=== PATIENT | female | born 1990 | race Caucasian/White ===

== ENCOUNTER → 2017-09-19 | Outpatient (CLI) | payer OTHER | END | disposition home or self-care (01) | LOC: RAD 13:07 | DX: M54.6 Pain in thoracic spine (principal); M25.532 Pain in left wrist | CPT/HCPCS: 72072; 73100 ==

== ENCOUNTER 2021-09-12 07:56 | Day surgery (SDC) | payer OTHER, MEDICAID ==
[~2021-09-12] VITALS: Ht 166.4 cm; Wt 61.0 kg
[~2021-09-12 07:56] MED LIST: FEXO-213 PO; HYDROmorphone 2 MG/ML INJ. IVP PRN; IV RINGERS,LACTATED 1000ML 1,000 ML IV SCH; MORPHINE SULFATE 2 MG/ML INJ. IVP PRN; NORG1TAB8 PO; PROCHLORPERAZINE 10 MG/2 ML VIAL. IVP PRN; fentaNYL PF VIAL 100 MCG/2 ML VIAL IVP PRN
[2021-09-12 08:24] VITALS: BP 156/95
[2021-09-12] MEDS ORDERED: ONDANSETRON PF 4 MG/2 ML VIAL. ONE (09:01)
[2021-09-12] MEDS ORDERED: PROPOFOL 10 MG/ML (20ML) VIAL. IV ONE ×3 (09:01→15:05)
[2021-09-12] MEDS ORDERED: LIDOCAINE 2% PF 5 ML VIAL. ONE (09:01)
[2021-09-12] MEDS ORDERED: SEVOFLURANE 61 TO 120 MINUTES. IH ONE (09:02)
[2021-09-12] MEDS ORDERED: DEXAMETHASONE SOD PHOS 4 MG/ML VIAL ONE (09:02)
[2021-09-12] MEDS ORDERED: fentaNYL PF VIAL 100 MCG/2 ML VIAL ONE ×2 (09:03→15:30)
[2021-09-12] MEDS ORDERED: HYDROmorphone 2 MG/ML INJ. ONE (09:13)
[2021-09-12] MEDS ORDERED: BUPIVACAINE MPF 0.25% 30 ML VIAL. ONE (12:34)
[2021-09-12] MEDS ORDERED: MIDAZOLAM HCL/PF 2 MG/2 ML VIAL. ONE (12:38)
[2021-09-12] MEDS ORDERED: diphenhydrAMINE 50 MG/ML VIAL ONE (13:52)
--- NOTE | 2021-09-12 15:19 | PDOC4 ---
OPERATIVE NOTE Date: Date: Sep 12, 2021 Pre-Op Diagnosis: Left bunion Post-Op Diagnosis: Left bunion deformity Procedure Performed: Distal first metatarsal osteotomy and Allen osteotomy, left Surgeon: Robby Fierro DPM Anesthesia Type: General Blood Loss: 20 cc Specimans Obtained: None Findings: Increased first intermetatarsal angle. Preoperatively, it measured 12 degrees but clinically, it was more significant. I think patient was guarding and inverting at the time of weightbearing x-ray. There was mild abutting between the hallux and second digit. Complications: None Operative Note: nder mild sedation, patient was brought into the operating room and placed on the operative table in a supine position. A formal timeout was performed to confirm patient's identity, procedure and procedure site. Following IV antibiotics and general anesthesia, a well-padded left high ankle tourniquet was applied. Following alcohol skin prep, 10 cc of 0.25% Marcaine plain was infiltrated to the surgical site in a Logan block fashion. The left lower extremity was then prepped, scrubbed and draped using aseptic techniques. The tourniquet was inflated. Using intraoperative x-ray, a provisional osteotomy approximately 5 mm proximal to the sesamoids, aiming perpendicular to the second metatarsal shaft was marked. The central axial position of the first metatarsal and first TMT and first MTPJ were marked on lateral view. Then a 5 mm stab incision was made at the provisional osteotomy site on the lateral first metatarsal neck. The incision was carried deep to the periosteum layer with blunt dissection with care to protect the neurovascular bundles. Before osteotomy, the tourniquet was deflated. Then a 2 x 19.5 mm straight MIS bur was used to complete the osteotomy at the level of the first metatarsal neck aiming perpendicular to the second metatarsal shaft using intraoperative x-ray guidance. After the capital fragment was freed and mobilized, a jig was used to laterally translate the capital fragment to reduce the first metatarsal angle to under 8 degrees. Then using standard AO techniques, One 4.0 mm and one 3.0mm fully threaded screws were placed from the medial proximal first metatarsal shaft to the capital fragment with goals to capture bicortical at the proximal first metatarsal shaft. Care was taken to protect the soft tissue neurovascular bundles at the medial surface of the first metatarsal near the screw placement sites. Intraoperative x-ray noted adequate hardware position, length without violating the first MTPJ. On the lateral view, the hardware was central to the first metatarsal shaft. At this time, intraoperative exam remarked slight overlap between the hallux and second digit and then the decision was made to perform an Allen osteotomy. Then a 5 mm stab incision was made at the medial surface of the proximal hallux. The incision was carried deep using blunt dissection to the periosteum layer. Then a 2.0 x 13 mm straight bur was used to complete the osteotomy aiming towards the lateral base of proximal hallux while preserving the lateral hinge. A small medially based wedge was removed and easy osteotomy apposition and reduction of the deformity was noted with 2 finger manipulation technique. Then using standard AO technique, a 3.0 millimeter screw was used to affix the osteotomy site. Intraoperative x-ray noted adequate hardware placement, position, reduc tion of the DASA deformity. All the surgical sites were irrigated with copious saline solution. The surgical sites were closed with 4-0 nylon. 5 cc of 0.25% Marcaine plain was used to augment postoperative anesthesia to the first ray. At the surgical s ites were dressed with Xeroform, 4 x 4, Kerlix, ABD and Jayson bandage. Adequate digital perfusion was noted after surgery. Patient tolerated the procedure and anesthesia well with vital signs stable and neurovascular status intact. Patient was then transferred to PACU for continuous recovery. Pending surgical foot x-ray 3 view. ROBBY FIERRO DPM Sep 12, 2021 15:19
[2021-09-12] MEDS ORDERED: oxyCODONE/APAP 5/325 1 TAB TABLET PO ONE (15:30)
[2021-09-12] MEDS ORDERED: ACETAMINOPHEN 325 MG TABLET. PO ONE (15:30)
[2021-09-12] MEDS ORDERED: GABAPENTIN 100 MG CAPSULE. PO ONE (15:30)
[2021-09-12] MEDS: fentaNYL PF VIAL 100 MCG/2 ML VIAL IVP PRN ×2 (15:34→16:00)
[2021-09-12 16:09] VITALS: BP 150/87
--- NOTE | 2021-09-12 16:54 | RAD ---
XR FOOT_LEFT 3 VIEWS 09/12/2021 Reason: POST OP Comparison: Left foot radiographs 09/03/2021 Technique: 3 views of the left foot Findings: Postoperative changes of osteotomy at the first metacarpal and first proximal phalange. No soft tissu e swelling along the medial forefoot. No evidence of hardware failure or loosening. Impression: Postoperative changes of the first digit. Electronically signed by: Chandler Garsia MD (09/12/2021 4:52 PM) [id number]
== END 2021-09-12 16:31 | disposition home or self-care (01) ==
LOC: SURG 07:56
PROVIDERS: ATTEND Podiatrist
DX: M21.612 Bunion of left foot (principal); M20.12 Hallux valgus (acquired), left foot; Z79.899 Other long term (current) drug therapy; Z98.890 Other specified postprocedural states; Z72.89 Other problems related to lifestyle
CPT/HCPCS: 28299; 73630; 81025; A4930; A6402; A6449; A6450; C1776; J0690; J1100; J1170; J1200; J2250; J2405; J2704; J3010; J3490; A4657